=== PATIENT | female | born 2000 | race Two or more races ===

== ENCOUNTER 2020-12-19 22:16 | Emergency (ER) | payer BC ==
[2020-12-19] MEDS ORDERED: HALOPERIDOL LACTATE INJ 5 MG/ML VIAL IM ONE (22:30)
[2020-12-19] MEDS ORDERED: IV NS 0.9% 1,000 ML IV ONE (22:30)
[2020-12-19] MEDS ORDERED: ONDANSETRON HCL/PF - ER 4 MG/2 ML VIAL IV ONE (22:30)
[2020-12-19] MEDS ORDERED: ONDANSETRON HCL/PF 4 MG/2 ML VIAL ONE (22:34)
[2020-12-19] MEDS ORDERED: HALOPERIDOL LACTATE INJ 5 MG/ML VIAL ONE (22:34)
[2020-12-19] MEDS ORDERED: ONDA4TAB11 PO (23:06)
--- NOTE | 2020-12-19 23:23 | NUR ---
[place] [place] [phone]
--- NOTE | 2020-12-19 23:35 | NUR ---
Patient discharged to home in stable condition. Written and verbal after care instructions given. Patient verbalizes understanding of instruction.
[2020-12-20 00:01] VITALS: BP 124/75
== END 2020-12-19 23:35 | disposition home or self-care (01) ==
LOC: ER 22:43
DX: R11.2 Nausea with vomiting, unspecified (principal); Z79.899 Other long term (current) drug therapy
CPT/HCPCS: 96361; 96372; 96374; 99284; J1630; J2405; J7030